=== PATIENT | female | born 1970 | race Caucasian/White ===

== ENCOUNTER 2016-12-25 12:47 | Emergency (ER) | payer OTHER ==
[~2016-12-25] VITALS: Ht 162.6 cm; Wt 65.8 kg
[2016-12-25 13:00] VITALS: BP_SYST 162
--- NOTE | 2016-12-25 13:10 | NUR ---
Pt placed in ER waiting room in stable condition.
[2016-12-25 14:13] LABS: BASOPHILS # (AUTO) 0.1 K/uL (0.0-0.2); BASOPHILS % (AUTO) 0.8 % (0.0-2.0); EOSINOPHILS % (AUTO) 0.3 % (0.0-4.0); HEMATOCRIT 42.8 % (36-48); HEMOGLOBIN 14.9 g/dL (12.0-16.0); LYMPHOCYTES # (AUTO) 0.5 K/uL (1.0-5.5); LYMPHOCYTES % (AUTO) 5.5 % (20.5-51.5); MEAN CORPUSCULAR HEMOGLOBIN 33 pg (27-31); MEAN CORPUSCULAR HGB CONC 35 % (32-36); MEAN CORPUSCULAR VOLUME 95 fL (79.0-98.0); MONOCYTES # (AUTO) 1.3 K/uL (0.0-1.0); NEUTROPHILS # (AUTO) 7.5 K/uL (1.8-7.7); NEUTROPHILS % (AUTO) 79.4 % (40.0-70.0); PLATELET COUNT (AUTO) 331 K/uL (130-430); RED BLOOD CELL COUNT(AUTO) 4.49 MIL/uL (4.2-6.2); RED CELL DISTRIBUTION WIDTH 11.7 % (9.0-15.0); WHITE BLOOD COUNT (AUTO) 9.4 K/uL (4.8-10.8)
[2016-12-25 14:14] LABS: BILIRUBIN,URINE NEGATIVE (NEGATIVE); BLOOD, URINE NEGATIVE (NEGATIVE); CLARITY/URINE CLEAR (CLEAR); COLOR,URINE YELLOW (YELLOW); GLUCOSE,URINE NEGATIVE (NEGATIVE); KETONES,URINE NEGATIVE (NEGATIVE); LEUKOCYTE ESTERASE ,URINE NEGATIVE (NEGATIVE); NITRITE, URINE NEGATIVE (NEGATIVE); PH,URINE 6.5 (5.0-8.0); PROTEIN URINE NEGATIVE (NEGATIVE); UROBILINOGEN,URINE 0.2 (0.2-1.0)
[2016-12-25 14:25] LABS: CREATININE 0.94 mg/dL (0.55-1.30); POTASSIUM 3.8 mmol/L (3.5-5.1)
[2016-12-25 14:29] LABS: ALBUMIN 4.1 g/dL (3.4-4.8); TOTAL BILIRUBIN 0.3 mg/dL (0.0-1.0); TOTAL PROTEIN, SERUM 7.8 g/dL (6.4-8.3)
--- NOTE | 2016-12-25 15:07 | NUR ---
Pt upset because she hasn't been seen yet. Reassured pt that as we get beds available we will get more pt.'s back to rooms.
--- NOTE | 2016-12-25 15:25 | NUR ---
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 Pt c/o dizziness, yet pacing back and forth with steady gait. Security called.
--- NOTE | 2016-12-25 16:11 | NUR ---
Patient to ER bed 6 to gown for evaluation. Side rails up. Report given to STEPHANIE Rodriguez.
--- NOTE | 2016-12-25 16:15 | NUR ---
Pt arrived to ER accompanied by , A&Ox4, ambulatory, pt c/o lower back pain, headache, nausea and flu like symptoms , skin pink and warm, afebrile , VS WNL, respirations even and unlabored, pt requesting pain medication at this time, cap refill <3, MD aware.
[2016-12-25] MEDS ORDERED: NACL 0.9% 1,000 ML IV ONE (16:30)
[2016-12-25] MEDS ORDERED: ONDANSETRON HCL 4 MG/2 ML VIAL IVP ONE ×2 (16:30→17:00)
[2016-12-25 16:39] LABS: BARBITURATE, URINE NEGATIVE (NEG <=200); BENZODIAZEPINE, URINE NEGATIVE (NEG <=150); CANNABINOID, URINE POSITIVE (NEG <=50); COCAINE, URINE NEGATIVE (NEG <=150); METHAMPHETAMINES SCREEN,URINE NEGATIVE (NEG <=500); OPIATE, URINE NEGATIVE (NEG <=100); PHENCYCLIDINE SCREEN,URINE NEGATIVE (NEG <=25); UR TRICYCLIC ANTIDEPRESSANTS NEGATIVE (NEG <=300); URINE AMPHETAMINE NEGATIVE (NEG <=500); URINE METHADONE NEGATIVE (NEG <=200); URINE OXYCODONE SCREEN NEGATIVE (NEG <=100); URINE PROPOXYPHENE SCREEN NEGATIVE (NEG <=300)
[2016-12-25] MEDS ORDERED: DIPHENHYDRAMINE INJ 50 MG/ML VIAL IVP ONE (17:00)
[2016-12-25] MEDS ORDERED: LORazepam 2 MG/ML VIAL IVP ONE (17:00)
[2016-12-25] MEDS ORDERED: MORPHINE 4 MG/ML INJ. SYRINGE IVP ONE (17:00)
--- NOTE | 2016-12-25 18:47 | NUR ---
Pt on stable condition, states back pain improving to 6/10 at this time, resting in bed, VSS. Report given to Pedro BROWN.
[2016-12-25 19:33] VITALS: BP_SYST 144
--- NOTE | 2016-12-25 19:33 | NUR ---
Patient given written and verbal discharge instructions and verbalizes understanding. ER MD discussed with patient the results and treatment provided. Patient in stable condition. ID arm band removed. IV catheter removed intact and dressing applied, no active bleeding. Rx of Zofran ODT given. Patient educated on pain management and to follow up with PMD. Pain Scale 3/10. Opportunity for questions provided and answered.
== END 2016-12-25 19:33 | disposition home or self-care (01) ==
LOC: SED 12:47
DX: R11.10 Vomiting, unspecified (principal); R07.9 Chest pain, unspecified; R42 Dizziness and giddiness; R05 Cough
CPT/HCPCS: 36415; 71010; 80053; 80307; 81003; 84484; 85025; 93005; 96361; 96374; 96375; 99285; J2270; J2405; J2060; J7030